=== PATIENT | female | born 1940 | race Caucasian/White ===

== ENCOUNTER 2024-03-17 17:01 | Emergency (ER) | payer MEDICARE, BC ==
[~2024-03-17] VITALS: Ht 154.9 cm; Wt 52.2 kg
[2024-03-17 17:36] LABS: BASOPHILS % (AUTO) 0.8 % (0.0-2.0); EOSINOPHILS % (AUTO) 0.2 % (0.0-6.0); HEMATOCRIT 40 % (33-45); HEMOGLOBIN 13.1 g/dL (11.5-14.8); LYMPHOCYTES # (AUTO) 0.9 K/uL (0.8-4.8); MEAN CORPUSCULAR HEMOGLOBIN 31 PG (26.0-33.0); MEAN CORPUSCULAR HGB CONC 33 g/dl (31.0-36.0); MEAN CORPUSCULAR VOLUME 95 fL (82-100); MONOCYTES # (AUTO) 0.5 K/uL (0.1-1.30); NEUTROPHILS # (AUTO) 1.7 K/uL (1.8-8.9); PLATELET COUNT (AUTO) 152 K/uL (150-450); RED BLOOD CELL COUNT(AUTO) 4.19 MIL/uL (4.0-5.2); RED CELL DISTRIBUTION WIDTH 13.4 % (11.5-15.0); WHITE BLOOD COUNT (AUTO) 3.1 K/uL (4.3-11.0)
[2024-03-17 17:47] LABS: CALCIUM, SERUM 9.2 mg/dL (8.5-10.1); CARBON DIOXIDE 28 mmol/L (21-32); CHLORIDE 104 mmol/L (98-107); CREATININE 0.8 mg/dL (0.6-1.3); GLUCOSE 130 mg/dL (74-106); POTASSIUM 4.1 mmol/L (3.5-5.1); SODIUM SERUM 137 mmol/L (136-145); UREA NITROGEN, BLOOD 20 mg/dL (7-18)
[2024-03-17 17:53] LABS: ALANINE AMINOTRANSFERASE 20 U/L (12-78); ALBUMIN 3.4 g/dL (3.4-5.0); ALKALINE PHOSPHATASE 72 U/L (46-116); ASPARTATE AMINOTRANSFERASE 20 U/L (15-37); BILIRUBIN,DIRECT 0.1 mg/dL (0.0-0.2); BILIRUBIN,TOTAL 0.6 mg/dL (0.2-1.0); LIPASE 30 U/L (16-77); TOTAL PROTEIN, SERUM 6.9 g/dL (6.4-8.2)
[2024-03-17 17:59] LABS: MAGNESIUM 1.8 mg/dL (1.8-2.4)
[2024-03-17 18:05] LABS: LACTIC ACID 0.9 mmol/L (0.4-2.0)
[2024-03-17] MEDS: IV NS 0.9% 1,000 ML BAG IV ONE (19:00)
[2024-03-17 20:38] LABS: ADD URINE CULTURE NO; APPEARANCE,URINE Clear (CLEAR); BACTERIA,URINE Few /HPF (None Seen); BILIRUBIN,URINE Negative (NEGATIVE); BLOOD, URINE Negative Ery/uL (NEGATIVE); COLOR,URINE YELLOW (YELLOW); KETONES,URINE 15 mg/dL (NEGATIVE); LEUKOCYTE ESTERASE ,URINE Negative (NEGATIVE); NITRITE, URINE Negative (NEGATIVE); PROTEIN,URINE 30 mg/dl (NEGATIVE); RBC,URINE 0-2 /HPF (0-2); SQUAMOUS EPITHELIAL CELL,UR Few /HPF (None Seen); UGLUCOSE Negative (NEGATIVE); UROBILINOGEN,URINE 0.2 EU/dL (0.2)
[2024-03-17] MEDS ORDERED: NITR100C6 PO (20:47)
[2024-03-17 21:03] VITALS: BP 105/70; TEMP 98; O2SAT 97
[2024-03-18 05:22] LABS: THYROID STIMULATING HORMONE 0.91 uIU/mL (0.358-3.74)
== END 2024-03-17 21:04 | disposition home or self-care (01) ==
LOC: ER 17:05
DX: N39.0 Urinary tract infection, site not specified (principal); R53.1 Weakness; R55 Syncope and collapse; R11.0 Nausea; R07.9 Chest pain, unspecified; E78.00 Pure hypercholesterolemia, unspecified
CPT/HCPCS: 99285; 96360; 71045; 93005; 85025; 80048; 83605; 83690; 80076; 83735; 81001; 36415; 84439; 84443; 84484; 83880; 85007; J7030; J7040

== ENCOUNTER 2025-02-03 08:17 | Emergency (ER) | payer MEDICARE, BC ==
[~2025-02-03] VITALS: Ht 152.4 cm; Wt 51.3 kg
[~2025-02-03 08:17] MED LIST: NITR100C6 PO
[2025-02-03] MEDS ORDERED: ALBUTEROL FS 2.5 MG/0.5 ML VIAL.NEB ONE ×2 (08:56→09:02)
[2025-02-03] MEDS: ALBUTEROL FS 2.5 MG/0.5 ML VIAL.NEB NEB ONE (09:06)
[2025-02-03 09:08] VITALS: O2SAT 100; O2SAT 96
[2025-02-03 09:08] LABS: PLATELET COUNT (AUTO) 153 K/uL (150-450); RED BLOOD CELL COUNT(AUTO) 4.03 MIL/uL (4.0-5.2); RED CELL DISTRIBUTION WIDTH 13.9 % (11.5-15.0); WHITE BLOOD COUNT (AUTO) 6.0 K/uL (4.3-11.0)
[2025-02-03 09:15] LABS: CALCIUM, SERUM 8.6 mg/dL (8.5-10.1); CREATININE 0.8 mg/dL (0.6-1.3); SODIUM SERUM 140.0 mmol/L (136-145); UREA NITROGEN, BLOOD 24.0 mg/dL (7-18)
[2025-02-03 09:18] VITALS: O2SAT 100
[2025-02-03] MEDS ORDERED: ALBU18HF2 INH (10:39)
[2025-02-03] MEDS ORDERED: PRED20TA PO (10:39)
[2025-02-03 11:11] VITALS: BP 113/63; TEMP 98; O2SAT 95
== END 2025-02-03 11:13 | disposition home or self-care (01) ==
LOC: ER 08:37
DX: J98.01 Acute bronchospasm (principal); E78.00 Pure hypercholesterolemia, unspecified; I44.4 Left anterior fascicular block; Z20.822 Contact with and (suspected) exposure to COVID-19
CPT/HCPCS: 99285; 71045; 87426; 93005; 87804 ×2; 85025; 80048; 36415; 84484; 94640; J7512